=== PATIENT | female | born 1950 | race Two or more races ===

== ENCOUNTER → 2016-07-09 | Outpatient (CLI) | payer MEDICARE, OTHER ==
[2016-07-09 13:45] LABS: Blood Urea Nitrogen 13 mg/dL (7-17); Non-African American GFR(MDRD) >60 (>60 ml/min/1.73 sqM)
--- NOTE | 2016-07-09 15:48 | CT ---
EXAMINATION TYPE: CT soft tissue neck w con DATE OF EXAM: 07/09/2016 2:52 PM HISTORY: [id number]/100ml. F/U Lung CA. COMPARISON: Prior PET/CT March 17, 2016. CT DLP: 2124.7 mGycm. Automated Exposure Control for Dose Reduction was Utilized. TECHNIQUE: CT scan of the neck is performed with IV Contrast, patient injected with 100 mL of Omnipa que 300, axial images are obtained, coronal and sagittal reformatted images are reviewed. FINDINGS: Abnormal posterior cervical triangle lymph node or metastatic focus is redemonstrated and m easures 1.9 x 1.8 cm on current study axial image 42, stable or slightly smaller in size from recent PET CT. Some central hypodensity or necrosis is identified. No new greater than 1 cm neck lymph nodes are identified bilaterally. Visualized airway is clear. There is moderate spurring and disc space narrowing C5-C6 and C6-C7 level s in the cervical spine. There is mild mixed plaque at bilateral carotid bulbs. There is mild to mode rate eccentric mucosal thickening in inferior right maxillary sinus. Please refer to same day CT cap report for complete details on the upper thorax. IMPRESSION: Posterior cervical triangle mass or adenopathy stable or slightly smaller in size. Some c entral necrosis is suspected. No new mass or adenopathy is seen.
--- NOTE | 2016-07-09 16:12 | CT ---
EXAMINATION TYPE: CT ChestAbdPelvis w con DATE OF EXAM: 07/09/2016 2:52 PM COMPARISON: PET/CT March 17, 2016 HISTORY: [id number]/100ml. F/U Lung CA. CT DLP: 2124.7 mGycm. Automated Exposure Control for Dose Reduction was Utilized. CONTRAST: CT scan of the thorax, abdomen and pelvis is performed with IV Contrast, patient injected with 100 mL of Omnipaque 300. FINDINGS: LUNGS: Right hilar mass or adenopathy is marked low intensity suspicious for developing necrosis and measures 2.7 x 2.7 cm on current study axial image 27. Infrahilar extension is redemonstrated. It is stable or slightly less prominent versus recent PET/CT. Some invasion into middle and lower lobe pulm onary artery branches is difficult to exclude seen best on axial image 30. Some irregular posterior n odularity in the right lower lobe perhaps postobstructive atelectatic change is redemonstrated and st able or slightly less prominent seen best on axial image 35. No new mass or nodularity is identified. No pleural effusion or pneumothorax is seen. MEDIASTINUM: There are no greater than 1 cm new hilar or mediastinal lymph nodes. No pericardial ef fusion is seen. Heart size is stable and upper and mildly enlarged. 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 OTHER: No additional significant abnormality is seen. LIVER/GB: Cholecystectomy clips are redemonstrated. PANCREAS: No significant abnormality is seen. SPLEEN: No significant abnormality is seen. ADRENALS: No significant abnormality is seen. KIDNEYS: No significant abnormality is seen. BOWEL: No significant abnormality is seen. GENITAL ORGANS: No gross abnormality seen. LYMPH NODES: No greater than 1cm abdominal or pelvic lymph nodes are appreciated. OSSEOUS STRUCTURES: No facet arthropathy lower lumbar levels is again seen. Multilevel spurring in th oracic spine is redemonstrated. OTHER: No significant additional abnormality is seen. IMPRESSION: Right hilar mass or adenopathy is stable or slightly less prominent with central low-dens ity or necrosis noted. No new mass or adenopathy is seen.
== END ==
LOC: RADCTMAIN 12:49
PROVIDERS: ATTEND Radiology Radiation Oncology
DX: Z03.89 Encounter for observation for other suspected diseases and conditions ruled out (principal); C34.31 Malignant neoplasm of lower lobe, right bronchus or lung; Z88.5 Allergy status to narcotic agent
CPT/HCPCS: 82565; 84520; 70491; 71260; 74177; Q9967

== ENCOUNTER 2016-07-24 14:08 | Day surgery (SDC) | payer MEDICARE, OTHER ==
[2016-07-20 09:10] VITALS: BMI 33.8
[~2016-07-24 14:08] MED LIST: LACTATED RINGERS 1,000 ML IV SCH; LIDOCAINE 1% 20 ML VIAL (10MG/ML) FOR IV START INTRADERMA PRN
[2016-07-24] MEDS ORDERED: LACTATED RINGERS 1,000 ML IV ONE ×2 (14:21)
[2016-07-24 14:25] VITALS: TEMP 97.9
[2016-07-24] MEDS ORDERED: LIDOCAINE 1% 20 ML VIAL (10MG/ML) FOR IV START INTRADERMA ONE (14:25)
[2016-07-24] MEDS ORDERED: LABETALOL 5 MG/ML VIAL MDV ONE (15:40)
[2016-07-24] MEDS ORDERED: PROPOFOL 10 MG/ML 20 ML VIAL IV ONE (15:40)
--- NOTE | 2016-07-24 16:21 | P.PCN ---
Date of Procedure: 07/24/16 Procedure(s) Performed: Procedure: 1. Esophagogastroduodenoscopy and biopsy. 2. Total colonoscopy. Preoperative diagnosis: Dysphagia, change in bowel habits and family history of colon cancer in her brother. Postoperative diagnosis: 1. Benign esophageal ulcer in the proximal esophagus likely related to her radiation therapy with no strictures. 2. Mild antral gastritis. 3. Colonoscopy within normal limits. Preparation: HalfLytely prep. Sedation: Was provided by anesthesia. Brief clinical history: The patient is a 66-year-old female with family history of colon cancer in her brother. Her last colonoscopy was around 3-4 years ago. The patient had completed in May of this year chemotherapy and radiation treatment for large cell lung cancer. She was evaluated in our office earlier this month because of dysphagia as well as constipation issues. Apparently, she had issues with swallowing during her radiation treatment and that responded to symptomatic treatment then her problem restarted. No obvious bleeding or other alarm symptoms. Procedure: With the patient on her left lateral decubitus position and after informed consent and adequate sedation, I passed the Olympus-GIF 160 video upper endoscope through the cricopharyngeus down the esophagus. There was a 2 x 3 cm benign-looking ulceration in the proximal esophagus covered with white exudate, probably related to her radiation treatment with no evidence of strictures or hindrance to the advancement of the endoscope. I obtained a picture of the ulcer but no biopsies were obtained. GE junction was around 40 cm from the incisors and there was no hiatal hernia or any evidence of complicated reflux disease. The endoscope was then passed into the stomach which was insufflated with air and inspected in detail including the retroflex view in the cardia. There was some mottling and erythema in the antrum but no ulcers or erosions. Pyloric channel, duodenal bulb, post bulbar area and descending duodenum appeared within normal limits. I obtained biopsies from the antrum then the endoscope was withdrawn and I proceeded with colonoscopy. Perianal area did not show any fissures or fistulas. There were no masses felt on digital rectal examination. The Olympus CFQ 160L video colonoscope was then inserted in the rectum in the usual fashion and advanced to the cecum. The preparation was less than ideal, however, I was able to have a good look after thorough cleansing and I did not see any obvious polyps or mucosal abnormalities or other pathology. I retroflexed the endoscope in the rectum before the endoscope was withdrawn. The patient tolerated the procedure well. Plan: The patient was reassured. I would consider adding Carafate suspension to her regimen if she continues to have difficulty swallowing to expedite the healing of her ulcer. Certainly, if she continues to have difficulty swallowing in the future, repeat upper endoscopy will be recommended, to ascertain the healing of the ulcer and the absence of a stricture after complete healing of the ulcer. We would be happy to see in the office if her symptoms persist or do not improve, and we will keep you updated on her progress. With the family history of colon cancer in her brother, I am recommending repeat exam in 5 years from this date. She will follow-up with you as planned.
[2016-07-24 16:52] VITALS: BP 167/71; PULSE 86; RESP 16
== END 2016-07-24 16:58 | disposition home or self-care (01) ==
LOC: ORWHC2ENDO 14:08
DX: K22.10 Ulcer of esophagus without bleeding (principal); K29.50 Unspecified chronic gastritis without bleeding; B96.81 Helicobacter pylori [H. pylori] as the cause of diseases classified elsewhere; K21.9 Gastro-esophageal reflux disease without esophagitis; R19.4 Change in bowel habit; Z80.0 Family history of malignant neoplasm of digestive organs; Z85.118 Personal history of other malignant neoplasm of bronchus and lung; Z92.3 Personal history of irradiation; I10 Essential (primary) hypertension; E78.5 Hyperlipidemia, unspecified; Z79.1 Long term (current) use of non-steroidal anti-inflammatories (NSAID); Z79.899 Other long term (current) drug therapy; Z88.5 Allergy status to narcotic agent
CPT/HCPCS: 88305; 88342; 45378; 43239; J2704

== ENCOUNTER → 2016-10-09 | Outpatient (CLI) | payer MEDICARE, OTHER ==
[2016-10-09 12:21] LABS: Blood Urea Nitrogen 11 mg/dL (7-17); Non-African American GFR(MDRD) >60 (>60 ml/min/1.73 sqM)
--- NOTE | 2016-10-09 14:34 | CT ---
EXAMINATION TYPE: CT ChestAbdPelvis w con DATE OF EXAM: 10/09/2016 COMPARISON: CT cap July 09, 2016. HISTORY: Lung CA progress study. CT DLP: 997.5 mGycm. Automated Exposure Control for Dose Reduction was Utilized. CONTRAST: CT scan of the thorax, abdomen and pelvis is performed with IV Contrast, patient injected with 100 mL of Omnipaque 300. FINDINGS: LUNGS: There is redemonstration of low dense right hilar mass or adenopathy measuring 2.7 x 1.8 cm on axial image 23 felt likely stable versus prior exam accounting for technical differences. Infrahilar extension is redemonstrated. There is mass effect on adjacent bronchi and pulmonary arterial branche s, some invasion into middle and lower lobe pulmonary artery branches is difficult to exclude similar to prior study seen best on axial image 26. Some areas of ill-defined consolidation in the right mid dle and lower lobes is redemonstrated centrally, new in the right middle lobe versus prior exam. Ther e is new tiny right-sided pleural fluid collection. No pneumothorax is seen bilaterally. MEDIASTINUM: There are no new greater than 1 cm hilar or mediastinal lymph nodes. No pericardial ef fusion is seen. Heart size is stable and mildly enlarged. Mild to moderate diffuse esophageal wall t hickening is seen. Correlate for esophagitis advised. 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 Ectatic course to the asce nding aorta is present. OTHER: No additional significant abnormality is seen. LIVER/GB: Cholecystectomy clips are redemonstrated. PANCREAS: No significant abnormality is seen. SPLEEN: No significant abnormality is seen. ADRENALS: No significant abnormality is seen. KIDNEYS: No significant abnormality is seen. BOWEL: Oral contrast reaches mid transverse colon level. There is no suspicious small or large bowel dilatation. Some areas of mild wall thickening in the colon are present involving distal transverse c olon portions of left colon and portions of sigmoid rectal colon. Findings may be product of nondiste ntion but a colitis should be excluded clinically. GENITAL ORGANS: No gross abnormality seen. LYMPH NODES: No greater than 1cm abdominal or pelvic lymph nodes are appreciated. OSSEOUS STRUCTURES: Some facet arthropathy lower lumbar levels is redemonstrated. Mild to moderate mu ltilevel spurring in the thoracic spine is redemonstrated. Moderate joint space loss in both hips wit h mild acetabular spurring is present. OTHER: Moderate mixed plaque in the aorta is present. Surgical clips left anterior mid abdomen on axi al image 33 is redemonstrated. IMPRESSION: 1. Stable right hilar mass/adenopathy with infrahilar extension correlates with known neoplasm. Local mass effect is redemonstrated. Atelectatic change or infiltrates in right lower lobe are redemonstra su. New atelectatic change and/or infiltrates in right middle lobe are seen with new tiny right pleu ral fluid collection. No new metastatic disease. 2. Possible diffuse esophagitis and/or colitis, clinical correlation advised.
== END | disposition home or self-care (01) ==
LOC: RADCTMAIN 11:27
PROVIDERS: ATTEND Internal Medicine Hematology & Oncology
DX: C34.31 Malignant neoplasm of lower lobe, right bronchus or lung (principal); R91.8 Other nonspecific abnormal finding of lung field
CPT/HCPCS: 82565; 84520; 71260; 74177; 36415; Q9967

== ENCOUNTER → 2016-10-16 | Outpatient (CLI) | payer MEDICARE, OTHER ==
--- NOTE | 2016-10-16 17:17 | MR ---
EXAMINATION TYPE: MR brain wo/w con DATE OF EXAM: 10/16/2016 COMPARISON: 03/28/2016 HISTORY: Stat Hold and Call for Hx of Lung CA, recent episodes of Unsteady Gait CONTRAST: Standard multiplanar, multisequence MRI departmental protocol utilizing 15 mL intravenous MultiHance gadolinium contrast. FINDINGS: There are patchy areas of increased signal in the periventricular white matter. There are f oci that measure up to 1 cm. There is no mass effect nor midline shift. There is no evidence of intra cranial hemorrhage. There are 2 to 3 mm foci of increased signal in the osmar. There is no pathologic enhancement. There is thinning of the corpus callosum. Sella turcica appears normal. IMPRESSION: Scattered white matter changes likely related to chronic small vessel ischemia. No acute intracranial abnormality. No significant change compared to old exam. No evidence of cerebral metastatic disease.
== END | disposition home or self-care (01) ==
LOC: RADMRIMAIN 11:50
PROVIDERS: ATTEND Internal Medicine Hematology & Oncology
DX: R90.82 White matter disease, unspecified (principal); C34.31 Malignant neoplasm of lower lobe, right bronchus or lung; R26.81 Unsteadiness on feet
CPT/HCPCS: 70553; A9577

== ENCOUNTER → 2017-02-05 | Outpatient (CLI) | payer MEDICARE, OTHER ==
[2017-02-05 11:24] LABS: Blood Urea Nitrogen 10 mg/dL (7-17); Non-African American GFR(MDRD) >60 (>60 ml/min/1.73 sqM)
--- NOTE | 2017-02-05 12:47 | CT ---
EXAMINATION TYPE: CT soft tissue neck w con DATE OF EXAM: 02/05/2017 HISTORY: malignant neoplasm RLL lung. enlarged lymph nodes rt side of neck. COMPARISON: CT neck July 09, 2016. Prior PET/CT March 17, 2016. CT DLP: 599.72 mGycm. Automated Exposure Control for Dose Reduction was Utilized. TECHNIQUE: CT scan of the neck is performed with IV Contrast, patient injected with 50 mL of Omnipaq ue 300, axial images are obtained, coronal and sagittal reformatted images are reviewed. FINDINGS: Airway: No gross abnormality seen. Parotid/submandibular glands: No gross abnormality seen. Carotid/Vascular Structures: There is mild to moderate mixed plaque at bilateral carotid bulbs withou t significant stenosis identified. Osseous Structures: Spine is straightened on sagittal images. There is mild to moderate disc space na rrowing C5-C6 level. Other: Previously visualized right posterior cervical metastatic adenopathy is diminished in size brenda suring 8 x 7 mm on current study axial image 43. There are some scattered subcentimeter lymph nodes t hroughout the neck bilaterally including inferior deep left parotid gland level on axial image 32 fel t stable. No new greater than 1 cm adenopathy is seen. IMPRESSION: Positive treatment response with decrease in size of right posterior cervical metastatic adenopathy now measuring 8 x 7 mm versus 19 x [address]
--- NOTE | 2017-02-05 13:00 | CT ---
EXAMINATION TYPE: CT ChestAbdPelvis w con DATE OF EXAM: 02/05/2017 COMPARISON: CT chest abdomen and pelvis October 09, 2016. Prior PET/CT March 17, 2016 HISTORY: malignant neoplasm RLL lung. enlarged lymph node rt side of neck. CT DLP: 1780.28 mGycm. Automated Exposure Control for Dose Reduction was Utilized. CONTRAST: CT scan of the thorax, abdomen and pelvis is performed with oral and with IV Contrast, patient inject ed with 50 mL of Omnipaque 300. FINDINGS: LUNGS: There is interval resolution of tiny right pleural effusion. There is persistent irregular het erogeneous low dense right hilar mass measuring 2.4 x 1.9 cm on current study axial image 23 not sign ificantly changed from most recent prior CT. This is between right upper and mid lung pulmonary arter ies on coronal images. Some infrahilar extension with mass effect on right middle and lower lobe stuart rial branches near axial image 25 is redemonstrated, invasion cannot be excluded. Multifocal areas of irregular consolidation in the right middle and lower lobe with air bronchograms remain present. The re is stable 5 mm scarlike opacity in the right upper lobe on axial image 14. Left lung remains clear . No new suspicious mass or nodule is present. No pneumothorax is seen bilaterally. MEDIASTINUM: There are no greater than 1 cm new hilar or mediastinal lymph nodes. No pericardial ef fusion is seen. Heart size is upper limits of normal. There is persistent mild/moderate wall thicken ing in the mid esophagus at level of eric unchanged from prior. There is redemonstration of left-si ded aortic arch with a aberrant right brachiocephalic artery running posterior to esophagus. Ectatic course to the descending aorta is redemonstrated. OTHER: No additional significant abnormality is seen. LIVER/GB: Cholecystectomy clips are redemonstrated. PANCREAS: No significant abnormality is seen. SPLEEN: No significant abnormality is seen. ADRENALS: No significant abnormality is seen. KIDNEYS: No significant abnormality is seen. BOWEL: The oral contrast does not reach colonic level. There is no suspicious small or large bowel di latation noted. GENITAL ORGANS: Occasional pelvic phlebolith is again seen. LYMPH NODES: No greater than 1cm abdominal or pelvic lymph nodes are appreciated. OSSEOUS STRUCTURES: There is fairly moderate multilevel spurring in the thoracic spine redemonstrated . OTHER: There is fairly moderate mixed plaque in the abdominal aorta redemonstrated. Surgical clips an terior upper abdomen left of midline on axial image 59 is redemonstrated. There is moderate to severe joint space loss with acetabular spurring in both hips redemonstrated. There is facet arthropathy in the lower lumbar spine. IMPRESSION: Overall stable findings, stable right hilar mass/adenopathy with infrahilar extension cor relates with known neoplasm on older PET/CT. No new suspicious mass or adenopathy identified. Other f indings stable.
== END | disposition home or self-care (01) ==
LOC: RADCTMAIN 10:50
PROVIDERS: ATTEND Radiology Radiation Oncology
DX: C34.31 Malignant neoplasm of lower lobe, right bronchus or lung (principal); Z88.5 Allergy status to narcotic agent
CPT/HCPCS: 82565; 84520; 70491; 71260; 74177; 36415; Q9967

== ENCOUNTER → 2017-07-20 | Outpatient (CLI) | payer MEDICARE, OTHER ==
--- NOTE | 2017-07-23 07:20 | PE ---
EXAMINATION TYPE: PET CT fusion skull to thigh DATE OF EXAM: 07/20/2017 COMPARISON: CT chest abdomen and pelvis February 05, 2017. PET CT March 17, 2016 HISTORY: Right-sided lung cancer completed chemotherapy April 2016 and completed radiation treatme nt May 2016 presents with progress study. TECHNIQUE: Following the intravenous administration of 13.82 mCi of F-18 FDG, whole body images are performed from the skull base to the midthigh. Images are reviewed on the computer in the coronal, a xial, and sagittal planes. Reconstructed rotating images are created on independent workstation and reviewed on the computer. A noncontrast CT is performed in conjunction with the PET scan. SCAN: Subsequent Scan FINDINGS: SKULL BASE AND NECK: Previously enlarged hypermetabolic right posterior triangle or cervical lymph n ode currently measures 10 x 9 mm axial image 46 without abnormal hypermetabolic uptake currently. No new areas of abnormal hypermetabolic uptake in the neck are identified. CHEST, MEDIASTINUM, AND HILAR REGION: There is persistent abnormal hypermetabolic uptake right hilar level with adenopathy difficult to accurately measure seen better on recent contrast-enhanced CT. Max SUV is 7.64 on current study. This is improved in size and max SUV from prior PET/CT. Area of involv ement is roughly 2.4 x 2.[address] axial image 22. There is fairly stable left lower lobe 10 x 9 mm nodule axial image 112, mild hypermetabolic uptake i s seen currently, max SUV is 2.65. No new areas of abnormal hypermetabolic uptake are otherwise identified. ABDOMEN AND PELVIS: No suspicious areas of abnormal hypermetabolic uptake are seen OSSEOUS STRUCTURES: No suspicious hypermetabolic uptake is present. OTHER CT: In the low right axilla there is new nonhypermetabolic 2.4 x 2.2 cm round well-circumscribe d low dense lesion, consider seroma or hematoma if there has been recent trauma or procedure on axial image 76. Correlate clinically. Need to further investigate by ultrasound should be based on clinica l correlation. There is redemonstration of left-sided arch. There is redemonstration of aberrant right brachiocephal ic artery running posterior to the esophagus which is normal variant. Mild cardiomegaly is redemonstrated. There is coronary artery calcification seen which is noted marke r for coronary artery disease. Cholecystectomy clips are noted. There is mild to moderate calcified plaque of aorta extending into b ranch vessels. There are scattered pelvic phleboliths. Slight scoliosis is seen in the thoracic spine. Facet arthropathy is redemonstrated in lower lumbar l evels. IMPRESSION: Persistent neoplasm right hilar level improved from prior CT. Resolved right sided neck a denopathy still prominent but subcentimeter in size without abnormal hypermetabolic uptake currently. In retrospect stable left lower lobe nodule without definitive abnormal hypermetabolic uptake, borde rline uptake seen currently. No new areas of hypermetabolic uptake clearly seen. Attention to lower r ight axilla as detailed above.
== END | disposition home or self-care (01) ==
LOC: RADPETMAIN 09:20
PROVIDERS: ATTEND Radiology Radiation Oncology
DX: C34.31 Malignant neoplasm of lower lobe, right bronchus or lung (principal); R91.1 Solitary pulmonary nodule
CPT/HCPCS: 78815; A9552

== ENCOUNTER → 2017-09-26 | Outpatient (CLI) | payer MEDICARE, OTHER ==
[2017-09-26 10:37] LABS: Blood Urea Nitrogen 8 mg/dL (7-17)
--- NOTE | 2017-09-26 12:30 | CT ---
EXAMINATION TYPE: CT ChestAbdPelvis w con DATE OF EXAM: 09/26/2017 COMPARISON: NONE HISTORY: Patient has no complaints at time of study. Follow up study for known lung cancer. CT DLP: 808.4 mGycm CONTRAST: CT scan of the chest, abdomen and pelvis is performed with Oral Contrast and with IV Contrast, patien t injected with 100 mL of Isovue 300. [address] Chest: LUNGS: Right hilar mass is increased in size and measures 2.3 x 3.6 cm versus 2.4 x 2.0 cm previously . There is persistent perihilar nodularity as well as post radiation therapy parenchymal change. Lobu lated nodule left lower lobe is essentially unchanged at 1.1 cm on current study versus 1.1 cm previo usly. New groundglass density right lower lobe. MEDIASTINUM: Thoracic aorta is of normal caliber. The heart is not enlarged. No evidence for media stinal mass or adenopathy. HILAR STRUCTURES: No evidence for mass. No hilar adenopathy is appreciated. OTHER: Right axillary mass measuring 3.4 cm may reflect a large lymph node. Correlate clinically. No left ax illary adenopathy appreciated. CONTRAST CT ABDOMEN AND PELVIS FINDINGS: LIVER/GB: Cholecystectomy clips are in place. No space occupying hepatic lesion. Biliary tree is of n ormal caliber. Mild hepatic steatosis. PANCREAS: No inflammation. No distinct mass. SPLEEN: No splenic enlargement. No lesion seen. ADRENALS: No nodule. No thickening. KIDNEYS/BLADDER: No hydronephrosis. No nephrolithiasis. No disctinct renal mass. BOWEL: Normal appendix. Normal bowel caliber. No inflammation. GENITAL ORGANS: No gross abnormality. LYMPH NODES: No greater than 1cm abdominal or pelvic lymph nodes are appreciated. AORTA: No significant abnormality. OSSEOUS STRUCTURES: No significant abnormality is seen. OTHER: No significant additional abnormality is seen. IMPRESSION: 1. Enlarging right hilar mass. 2. Enlarging left basilar pulmonary nodule. 3. New right axillary mass may reflect adenopathy. 4. Persistent right perihilar nodularity as well as post radiation therapy parenchymal change. 5. No evidence for distant metastases.
== END | disposition home or self-care (01) ==
LOC: RADCTMAIN 09:54
PROVIDERS: ATTEND Internal Medicine Hematology & Oncology
DX: R91.1 Solitary pulmonary nodule (principal); R91.8 Other nonspecific abnormal finding of lung field; C34.31 Malignant neoplasm of lower lobe, right bronchus or lung; R10.84 Generalized abdominal pain; Z88.5 Allergy status to narcotic agent
CPT/HCPCS: 82565; 84520; 71260; 74177; 36415; Q9967

== ENCOUNTER 2017-10-07 10:47 | Day surgery (SDC) | payer MEDICARE, OTHER ==
[2017-10-03 13:22] VITALS: BMI 32.1
[~2017-10-07 10:47] MED LIST changes: +MIDAZOLAM 2 MG/2 ML VIAL IV PRN
[2017-10-07 11:37] VITALS: RESP 16; TEMP 98.7
[2017-10-07] MEDS ORDERED: LIDOCAINE 1% 20 ML VIAL (10MG/ML) FOR IV START INTRADERMA ONE (11:50)
[2017-10-07] MEDS ORDERED: LIDOCAINE 1% INJ 10MG/ML (20 ML MDV) ONE (12:28)
[2017-10-07] MEDS ORDERED: PROPOFOL 10 MG/ML 20 ML VIAL IV ONE (12:28)
[2017-10-07 13:10] VITALS: BP 179/87; PULSE 75
--- NOTE | 2017-10-07 13:39 | P.PCN ---
Date of Procedure: 10/07/17 Procedure(s) Performed: Procedure: Esophagogastroduodenoscopy and biopsy. Preoperative diagnosis: Epigastric pain and dysphagia. Postoperative diagnosis: 1. Esophagitis, possibly pill-induced. 2. Small sliding hiatal hernia. 3. Mild antral gastritis. 4. Multiple biopsies obtained from the duodenum, antrum and esophagus. Preparation and sedation: Was provided by anesthesia. Brief clinical history: The patient is a 67-year-old female with history of lung cancer treated with radiation and chemotherapy last year. Her last upper endoscopy with me was in July 2016. This evaluation because of recent onset of epigastric pain and dysphagia around 3 weeks ago. The patient takes Voltaren on a chronic basis. When specifically questioned, she didn't rule out the possibility that she could have had her pelvic pain in the supine position without taking water afterwards in the days prior to the onset of her symptoms. Procedure: With the patient on her left lateral decubitus position and after informed consent and adequate sedation, I passed the Olympus-GIF 160 video upper endoscope through the cricopharyngeus down the esophagus. There were 2 benign esophageal ulcerations across from each other starting at around 26 cm from the incisors and extending to around 2-3 cm. This raises the possibility of healing pill-induced esophagitis. There were no strictures. The esophagus appeared with no other obvious abnormalities. GE junction was at 36 cm from the incisors and there was a small sliding hiatal hernia. The endoscope was then passed into the stomach which was insufflated with air and inspected in detail including the retroflex view in the cardia. There was some mottling and erythema in the antrum consistent with gastritis but no ulcers or erosions. Pyloric channel, duodenal bulb, post bulbar area and descending duodenum appeared within normal limits. I obtained biopsies from the duodenum, antrum and esophagus, including the area of the ulcers in the esophagus, then the endoscope was withdrawn. The patient tolerated the procedure well. Plan: The patient was reassured. She will follow-up with you as planned. She will call my office for follow-up if her symptoms do not totally resolve.
== END 2017-10-07 13:22 | disposition home or self-care (01) ==
LOC: ORWHC2ENDO 10:47
DX: K29.50 Unspecified chronic gastritis without bleeding (principal); K21.0 Gastro-esophageal reflux disease with esophagitis; K44.9 Diaphragmatic hernia without obstruction or gangrene; I10 Essential (primary) hypertension; E78.5 Hyperlipidemia, unspecified; M19.90 Unspecified osteoarthritis, unspecified site; R32 Unspecified urinary incontinence; Z85.118 Personal history of other malignant neoplasm of bronchus and lung; Z92.3 Personal history of irradiation; Z92.21 Personal history of antineoplastic chemotherapy; Z79.899 Other long term (current) drug therapy; Z88.5 Allergy status to narcotic agent; Z87.891 Personal history of nicotine dependence
CPT/HCPCS: 88305; 88312; 88342; 43239; J2001; J2704

== ENCOUNTER → 2018-01-25 | Outpatient (CLI) | payer MEDICARE, OTHER ==
--- NOTE | 2018-01-27 12:14 | PE ---
Nuclear medicine PET/CT HISTORY: Lung carcinoma, subsequent Patient received 10.9 mCi F-18 FDG intravenously in delayed scanning was performed from skull base to the mid thighs. Localization and attenuation correction CT scan was performed. Correlation to prior nuclear medicine PET/CT 07/20/2017 Neck and chest: Posterior chain cervical node on the right now measures approximately 15 mm as compar ed to previous exam when it measured approximately 10 mm, there is associated hypermetabolic uptake, SUV is 4.7. Incidental note is made of the left aortic arch with aberrant right subclavian artery cou rsing posterior to the esophagus. Right lung shows a similar appearance with probable post radiation changes, there is hypermetabolic uptake noted in the right hilum where there is poorly defined soft t issue which appears more prominent as compared to prior exam, SUV is 9 with a component extending tow ards the right lower lobe, SUV 8.2. There is no pleural or pericardial effusion. Left lower lobe lung mass measures approximately 13 mm on today's exam is compared to prior when it measured 11 mm, there is associated hypermetabolic uptake, SUV is 4.1. Abdomen pelvis: There is a right adrenal mass which has increased in size in the interval and now brenda sures approximately 2.2 x 1.8 cm increased from prior when it measured approximately 1 cm, there is a ssociated hypermetabolic uptake, SUV is 5.2. Subcutaneous nodule posterior to the lumbar spine within the subcutaneous fat measures only approximately 13 mm and shows mild hypermetabolic uptake, SUV henna ue 1.9. Osseous structures are stable IMPRESSION: Findings compatible with progression of metastatic disease.
== END | disposition home or self-care (01) ==
LOC: RADPETMAIN 16:44
PROVIDERS: ATTEND Internal Medicine Hematology & Oncology
DX: C34.31 Malignant neoplasm of lower lobe, right bronchus or lung (principal)
CPT/HCPCS: 78815; A9552

== ENCOUNTER 2018-02-10 08:42 | Day surgery (SDC) | payer MEDICARE, OTHER ==
[2018-02-10 09:24] VITALS: RESP 16
[2018-02-10 10:49] VITALS: BP 199/88; PULSE 68
--- NOTE | 2018-02-10 13:57 | US ---
EXAMINATION TYPE: US biopsy lymph node, US fine needle aspiration DATE OF EXAM: 02/10/2018 HISTORY: Right Neck mass. FINDINGS: Maximal barrier technique was utilized. The skin overlying a suitable path to the patient' s mass in the right neck was localized with ultrasound and the overlying skin prepped and draped. Ul trasound was utilized with sterile technique. Lidocaine was used for local anesthesia. 3 passes wer e made with a 25-gauge needle under ultrasound guidance into the descending aspirated specimen was hurst bmitted to pathology. A skin demetrio was made with a scalpel. An 18-gauge needle was advanced under dir ect ultrasound guidance and core specimen obtained of the mass, 3 cores were obtained. Specimen subm itted in formalin to Pathology. Following the procedure, hemostasis achieved and the patient is disc harged in stable condition without complication. IMPRESSION:STATUS POST ULTRASOUND GUIDED FINE NEEDLE ASPIRATION, CORE BIOPSY OF right neck MASS, PATH OLOGY IS PENDING. THIS PROCEDURE IS PERFORMED BY THE UNDERSIGNED.
== END 2018-02-10 11:00 | disposition home or self-care (01) ==
LOC: RADPROMAIN 08:42
PROVIDERS: ATTEND Internal Medicine Hematology & Oncology
DX: L04.0 Acute lymphadenitis of face, head and neck (principal); C34.31 Malignant neoplasm of lower lobe, right bronchus or lung; Z88.5 Allergy status to narcotic agent
CPT/HCPCS: 10022; 38505; 76942; 88173; 88305; 88341; 88342

== ENCOUNTER → 2018-05-09 | Outpatient (CLI) | payer MEDICARE ==
--- NOTE | 2018-05-09 18:30 | CT ---
EXAMINATION TYPE: CT ChestAbdPelvis w con DATE OF EXAM: 05/09/2018 INDICATION: Lung cancer COMPARISON: PET/CT 01/25/2018 CT DLP: 1498 mGycm CONTRAST: Performed with Oral Contrast and with IV Contrast, patient injected with 100 mL of Isovue 300. TECHNIQUE: Axial images at 5 mm thick sections. Reconstructed images in the coronal plane. Delayed images through the kidneys. FINDINGS: CT CHEST: Portion of the thyroid visualized is normal. No enlarged mediastinal or hilar adenopathy is evident. Right hilar adenopathy may be difficult to se parate from the mass which extends from the right hilar region inferiorly and posteriorly. This has s ome impression on the right main pulmonary artery with compression and narrowing. Mass measures appro ximately 1.7 x 5.0 cm. Mediastinal windows series 3 image 23. There is an additional smaller masslike area measuring 0.5 cm which may be along the major fissure on the posterior lateral right lung. Seri es 3 image 201 best visualized on lung windows. Findings appear similar to the PET/CT findings within the lungs. A 0.9 cm density in the lateral right midlung, series 3 image 31 lung windows, is less de nse comparison similar in size. The previous left lower lobe density is not identified CT. There is some changes through the right middle lobe and posterior as ago esophageal recess region whi ch may be related to some radiation therapy changes. The ascending aorta diameter at the level of the main pulmonary artery is 3.1 cm. The main pulmonary artery diameter at the bifurcation is 2.[address] ABDOMEN: Liver: Normal Spleen: Normal Pancreas: Normal Adrenal glands: The adrenal glands are normal. Gallbladder: Normal Kidneys: No masses are evident. No hydronephrosis is present. No cysts are present. Delayed images were obtained through the kidneys, which remain unremarkable. Aorta: Vascular calcification is within the aorta. Inferior vena cava: Normal. CT PELVIS: Loops of bowel within the abdomen and pelvis are normal. There are loops of bowel which are incom pletely distended or lack oral contrast limiting their evaluation. Appendix: Not visualized. Urinary bladder: Normal. Genitourinary structures: Uterus and ovaries appear within normal limits. Osseous structures: No suspicious lytic or sclerotic lesions. IMPRESSIONS: 1. Stable appearing right hilar mass. 2. There may be some slight improvement of portions of the mass. There appears to be resolution of a previous left lower lobe mass.
== END | disposition home or self-care (01) ==
LOC: RADCTMAIN 10:50
PROVIDERS: ATTEND Internal Medicine Hematology & Oncology
DX: C34.31 Malignant neoplasm of lower lobe, right bronchus or lung (principal); Z88.5 Allergy status to narcotic agent
CPT/HCPCS: 82565; 84520; 71260; 74177; 36415; Q9967

== ENCOUNTER → 2018-07-15 | Outpatient (CLI) | payer MEDICARE ==
--- NOTE | 2018-07-15 11:55 | CT ---
EXAMINATION TYPE: CT ChestAbdPelvis w con DATE OF EXAM: 07/15/2018 COMPARISON: 05/09/2018 HISTORY: Lung cancer, Observe for mets CT DLP: 715.10 mGycm Automated exposure control for dose reduction was used. CONTRAST: CT scan of the chest, abdomen and pelvis is performed with Oral Contrast and with IV Contrast, patien t injected with 100 ml mL of Isovue 300. FINDINGS: LUNGS: Emphysematous changes are noted there remains a right perihilar mass measuring 2.4 x 3.7 cm an d producing measuring 2.4 x 3.4 cm. Subsegmental consolidation distal to the region noted. Previous e xams suggestion of a second nodule along the fissure measuring 9 mm. This is not clearly depicted on today's exam. There is areas of vague density which is felt to BE more likely inflammatory. Pleural t hickening and subsegmental areas of atelectasis or scar noted. Subpleural 3 mm nodularity right lower lobe stable and likely inflammatory. To millimeter nodule near the right lung apex and right upper l obe is stable relative to the prior exam. MEDIASTINUM: Right hilar soft tissue mass as measured above may be related to a combination of adenop athy and tumoral mass. There remains a short axis measurement of 1.5 cm a lymph node in the right axi lla with central low density likely related to necrosis. This producing measured 2.3 cm and is reduce d in size. Atherosclerotic change of the aorta noted with no evidence of aneurysm. Heart size normal. OTHER: There is an aberrant right subclavian artery LIVER/GB: Postcholecystectomy changes are noted. There is a 5 mm low-density lesion near the caudate lobe of the liver too small to characterize but stable and likely related to a simple cyst. PANCREAS: No significant abnormality is seen. SPLEEN: No significant abnormality is seen. ADRENALS: Left adrenal nodule measures 1 x 0.6 cm and is stable. Previously measured 1 x 0.5 mm. KIDNEYS: No significant abnormality is seen. BOWEL: No significant abnormality is seen. REPRODUCTIVE ORGANS: No gross abnormality seen. LYMPH NODES: No greater than 1 cm abdominal or pelvic lymph nodes are appreciated. OSSEOUS STRUCTURES: Hypertrophic and degenerative change of the vertebral column. No destructive jean ges. OTHER: Atherosclerotic change of the aorta. No free fluid. IMPRESSION: 1. Right hilar mass measures 2.4 x 3.7 cm it measured 2.4 x 3.4 cm on the previous exam. Given differ ences in technique this may not represent a significant interval change correlate clinically. 2. Stable left adrenal nodule measuring 1 x 0.6 cm. 3. Previous exam suggested a vague second nodule in the right lung which is not seen on today's exam. 4. Incidental note made of an aberrant right subclavian artery. 5. Interval reduction in size of the right axillary lymph node now measuring 1.5 cm in short axis and previously measuring 2.3 cm in short axis.
== END | disposition home or self-care (01) ==
LOC: RADCTMAIN 09:42
PROVIDERS: ATTEND Internal Medicine Hematology & Oncology
DX: Z03.89 Encounter for observation for other suspected diseases and conditions ruled out (principal); R91.8 Other nonspecific abnormal finding of lung field; E27.8 Other specified disorders of adrenal gland; C34.31 Malignant neoplasm of lower lobe, right bronchus or lung; Z88.5 Allergy status to narcotic agent
CPT/HCPCS: 82565; 84520; 71260; 74177; 36415; Q9967